=== PATIENT | male | born 1970 | race Caucasian/White ===

== ENCOUNTER 2016-03-27 16:48 | Emergency (ER) | payer MEDICAID, OTHER ==
[~2016-03-27] VITALS: Ht 160 cm; Wt 61.5 kg
[2016-03-27 17:10] VITALS: Ht 160 cm; Wt 61.5 kg
[2016-03-27] MEDS ORDERED: CYCL-319 PO (17:20)
[2016-03-27] MEDS ORDERED: IBUP800T25 PO (17:20)
--- NOTE | 2016-03-27 17:28 | ERD ---
ER Documentation Chief Complaint Date/Time DATE: 03/27/16 TIME: 17:23 Chief Complaint SORE THROAT,LEFT NECK PAIN HPI 45-year-old male accompanied by family is complaining of pain in the left side his neck 1 day. Patient stated that the pain onset upon awakening in the morning. He felt like he had twisted his neck. Denies fever or chills. Denies sore throat. Denies shortness of breath. Denies falls or any other injuries. ROS All systems reviewed and are negative except as per history of present illness. Medications Home Meds Active Scripts Cyclobenzaprine Hcl* (Cyclobenzaprine Hcl*) 10 Mg Tablet, 10 MG PO TID, #15 TAB Prov:MARITZA MONTOYA. SAFETY ATTENDANT 03/27/16 Ibuprofen* (Motrin*) 800 Mg Tab, 800 MG PO Q6H Y for PAIN AND OR ELEVATED TEMP, #30 TAB Prov:MARITZA MONTOYA. SAFETY ATTENDANT 03/27/16 PMhx/Soc Medical and Surgical Hx: pt denies Medical Hx Physical Exam Vitals Vital Signs Date Time Temp Pulse Resp B/P Pulse Ox O2 Delivery O2 Flow Rate FiO2 03/27/16 17:10 99.2 107 18 189/140 98 Physical Exam General impression: Well-developed, well-nourished. Alert, oriented, in no acute distress Head: Normocephalic, atraumatic. Eyes: PERRL, EOM normal. Conjunctiva not injected. ENT: Nasal mucosa, oral mucosa and oropharynx are normal. Neck: Supple, left sternocleidomastoid spasm noted. No lymphanopathy. No nuchal rigidity. Respiration: Normal respiratory effort. Lungs clear to auscultate bilaterally. No wheezes, rales or rhonchi. Cardiovascular: Regular rate and rhythm. No murmurs or extra heart sounds. Neuro: Mental status normal, speech normal. SELLING MANAGER grossly intact. Skin: Normal turgor. No rash or lesions. Psych: Normal mood and affect. Procedures/MDM Well-appearing 45-year-old male presented ED was left-sided neck pain 1 day. Patient is noted to have left sternocleidomastoid spasm. Likely acute torticollis. Low suspicion for meningitis, neck or peritonsillar abscess. Patient is provided with a soft collar for support. Patient advised to apply heat or ice to help ease the pain. Patient appears well, stable for discharge and outpatient management. Medical decision making shared with patient and family. Education provided to patient and family. Patient and family expressed understanding of the plan. Medications on discharge: Ibuprofen, Flexeril. Follow-up: Primary care provider in 2-3 days or return to ED if worse. Departure Diagnosis: Primary Impression: Torticollis Condition: Stable Patient Instructions: Torticollis (Wry Neck) [facility] Usted se sy hecho un examen mdico de control que le indica que no est en genna condicin que requiera tratamiento urgente en el Departamento de Emergencia. Un estudio ms profundo y el tratamiento de vincent condicin pueden esperar sin ningn riesgo hasta que usted sea atendida/o en el consultorio de vincent mdico o genna cl jorge. Es responsabilidad suya arreglar genna yani para el seguimiento del moon. MANEJO DE CONDICIONES NO URGENTES EN EL FUTURO 1) Si usted tiene un mdico de atencin primaria: Usted debera llamar a vincent mdico de atencin primaria antes de venir al departamento de emergencia. Despus de las horas de consultorio, vincent doctor o vincent asociado/a est disponible por telfono. El mdico o enfermero de sagrario en el servicio telefnico puede asesorarle por alyce medio para atender el problema, o moon contrario se puede programar genna yani. 2) Si usted no tiene un mdico de atencin primaria: Llame al mdico o clnica de referencia que aparece abajo althea las horas de consultorio para hacer genna yani para que le vean. CLINICAS: [facility] [phone] [id number] [facility] [phone] [facility] [phone] [id number] [facility] [phone] [facility]. [place] [id number] [phone] [facility]. [phone] [address] Additional Instructions: Llame al doctor MAANA y jose genna YANI PARA DENTRO DE 2-3 CALI.Dgale a la secretaria que nosotros le instruimos hacer esta yani.Avise o llame si vincent condicin se empeora antes de la yani. Regresa aqui si peor o no mejor. MARITZA MONTOYA. KIANA Mar 27, 2016 17:28
== END 2016-03-27 17:21 | disposition home or self-care (01) ==
LOC: E/R 16:48
DX: M43.6 Torticollis (principal)
CPT/HCPCS: 99283